=== PATIENT | female | born 1940 | race Caucasian/White ===

== ENCOUNTER 2018-01-09 13:26 | Day surgery (SDC) | payer OTHER, BC ==
--- NOTE | 2018-01-09 14:51 | HP ---
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 Followed by Oncologist . She has an appointment with oncologist on Saturday. She has had 3 blood transfusions prior to today's admission. Pt comes in today for 2 units of prbcs transfusion. Her hg outpt was around 8 per PCP. Pt appears well, reports fatigue which is chronic since chemo. Otherwise, no other complaints. Denies chest pain, sob, n/v/d, rash, unilateral weakness, or any acute bleeding. History Source: Patient Limitations to Obtaining History: No Limitations - Past Medical History Allergies/Adverse Reactions: Allergies Allergy/AdvReac Type Severity Reaction Status Date / Time No Known Drug Allergies Allergy Verified 07/08/15 13:56 Cardiovascular: Yes: CAD, HTN, Hyperlipdemia Gastrointestinal: Yes: Constipation, GERD, Irritable Bowel Disease Reproductive: Yes: Other (Uterine CA mets to lungs) Heme/Onc: Yes: Anemia, Current Chemotherapy Musculoskeletal: Yes: Osteoarthritis - Current Medications Current Medications: Home Medications Medication Instructions Recorded Amlodipine Besylate [Norvasc -] 5 mg PO DAILY 07/07/15 Aspirin Coated [Ecotrin -] 81 mg PO DAILY 07/07/15 Carvedilol 25 mg PO BID 07/07/15 Cholecalciferol (Vitamin D3) 1,000 unit PO DAILY 07/07/15 [Vitamin D3] Clonazepam [Klonopin] 0.5 mg PO PRN PRN 07/07/15 Ezetimibe [Zetia] 10 mg PO HS 07/07/15 FA/Vit C/E/Zinc/Copper/Lut/Stephy 1 each PO DAILY 07/07/15 [Ocuvel Capsule] Nitroglycerin [Nitrostat] 0.4 mg SL PRN PRN 07/07/15 Rosuvastatin Calcium [Crestor] 20 mg PO HS 07/07/15 Sertraline HCl [Zoloft -] 100 mg PO DAILY 07/07/15 Ubidecarenone [Co Q-10] 100 mg PO DAILY 07/07/15 Oxycodone HCl/Acetaminophen 1 - 2 tab PO Q4H #20 tablet 07/08/15 [Percocet 5-325 mg Tablet] Satellite Physical Exam - Physical Examination General Appearance: Well Nourished, Well Developed, Alert & Oriented x3, No Distress, Calm ENT: Clear Lung: Clear to auscultation Heart: Regular rate & rhythm Abdomen: Soft, No tenderness, Normal bowel sounds Extremities: No edema Neurological: Intact, Alert, Oriented Satellite Impression/Plan - Impression/Plan Impression: Chemotherapy Induced Anemia Operative Procedure: Plan: 2units prbcs ordered. vital signs per protocol. post transfusion cbc. d/c tomorrow am if no other issues
[2018-01-09] MEDS ORDERED: clonazePAM 0.5 MG TABLET PO PRN (15:15)
[2018-01-09] MEDS ORDERED: NITROGLYCERIN SUBLINGUAL 1/150 0.4 MG TAB SL PRN (15:42)
[2018-01-09] MEDS ORDERED: ACETAMINOPHEN 325 MG TABLET (FP) PO PRN (16:13)
[2018-01-09] MEDS ORDERED: oxyCODONE HCL 5 MG TABLET PO PRN (16:13)
[2018-01-09 20:14] LABS: BASO % 0.3 % (0-2.0); EOS % 0.7 % (0-4.5); HEMATOCRIT 23.8 % (32.4-45.2); LYMPH % 9.7 % (8-40); MCH 31.2 pg (25.7-33.7); MCHC 33.7 g/dl (32.0-36.0); MEAN CELL VOLUME 92.5 fl (80-96); MONO % 18.1 % (3.8-10.2); NEUT % 71.2 % (42.8-82.8); PLATELET COUNT 198 K/MM3 (134-434); RBC 2.58 M/mm3 (3.60-5.2); RDW 19.3 % (11.6-15.6); WHITE BLOOD COUNT 2.9 K/mm3 (4.0-10.0)
[2018-01-10 08:24] LABS: BASO % 1.3 % (0-2.0); EOS % 1.1 % (0-4.5); HEMATOCRIT 27.6 % (32.4-45.2); HEMOGLOBIN 9.4 GM/dL (10.7-15.3); MCHC 33.9 g/dl (32.0-36.0); MEAN CELL VOLUME 91.5 fl (80-96); MONO % 18.4 % (3.8-10.2); NEUT % 68.2 % (42.8-82.8); PLATELET COUNT 165 K/MM3 (134-434); RBC 3.02 M/mm3 (3.60-5.2); RDW 19.1 % (11.6-15.6); WHITE BLOOD COUNT 2.4 K/mm3 (4.0-10.0)
--- NOTE | 2018-01-10 09:42 | DS ---
Physical Examination Vital Signs: Vital Signs Temperature 98.0 F 01/10/18 06:00 Pulse Rate 70 01/10/18 06:00 Respiratory Rate 20 01/10/18 06:00 Blood Pressure 123/53 01/10/18 06:00 O2 Sat by Pulse Oximetry (%) Constitutional: Yes: Well Nourished, No Distress, Calm Cardiovascular: Yes: WNL, Regular Rate and Rhythm. No: Gallop, Murmur Respiratory: Yes: WNL, Regular, CTA Bilaterally. No: Accessory Muscle Use, SOB , Tachypnea, Wheezes Gastrointestinal: Yes: WNL, Normal Bowel Sounds, Soft. No: Distention, Tenderness Renal/: Yes: WNL Edema: No Integumentary: Yes: WNL Neurological: Yes: WNL, Alert, Oriented Psychiatric: Yes: WNL, Alert, Oriented Labs: CBC, BMP 01/10/18 07:15 Discharge Summary Reason For Visit: ANEMIA Hospital Course: is a pleasant 77 year old female who came in from home for blood transfusions per PCP for chemotherapy induced anemia. Hg 8 pre- transf. Pt received 2 units prbcs here without any issues. Otherwise, she remained stable overnight. vital signs stable. Pt asymptomatic. Pt is medically stable to be discharged home. Pt to f/u with oncologist on Saturday. Condition: Good - Instructions Diet, Activity, Other Instructions: resume prev activity, diet f/u with pcp oncologist on Saturday Disposition: HOME - Home Medications Comprehensive Discharge Medication List: Ambulatory Orders Amlodipine Besylate [Norvasc -] 5 mg PO DAILY 07/07/15 Aspirin Coated [Ecotrin -] 81 mg PO DAILY 07/07/15 Carvedilol 25 mg PO BID 07/07/15 Cholecalciferol (Vitamin D3) [Vitamin D3] 1,000 unit PO DAILY 07/07/15 Clonazepam [Klonopin] 0.5 mg PO PRN PRN 07/07/15 Ezetimibe [Zetia] 10 mg PO HS 07/07/15 FA/Vit C/E/Zinc/Copper/Lut/Stephy [Ocuvel Capsule] 1 each PO DAILY 07/07/15 Rosuvastatin Calcium [Crestor] 20 mg PO HS 07/07/15 Sertraline HCl [Zoloft -] 100 mg PO DAILY 07/07/15 Ubidecarenone [Co Q-10] 100 mg PO DAILY 07/07/15
[2018-01-10] MEDS ORDERED: SERTRALINE HCL 50 MG TABLET (FP) PO SCH ×2 (10:00→12:15)
[2018-01-10] MEDS ORDERED: amLODIPine BESYLATE 5 MG TABLET (FP) PO SCH (12:15)
[2018-01-10] MEDS ORDERED: CARVEDILOL 25 MG TABLET (FP) PO SCH (12:15)
[2018-01-10 12:26] VITALS: PULSE 69
[2018-01-10 12:27] VITALS: BP 122/68; TEMP 97.6
== END 2018-01-10 13:05 | disposition home or self-care (01) ==
LOC: JBLOOD 13:26 → J5S 13:27 → JBLOOD 01-10 13:05
PROVIDERS: ATTEND Specialist
PROC: 30233N1 Transfusion of Nonautologous Red Blood Cells into Peripheral Vein, Percutaneous Approach (ICD-10-PCS; principal; 2018-01-10)
DX: D64.9 Anemia, unspecified (principal); C55 Malignant neoplasm of uterus, part unspecified; C78.00 Secondary malignant neoplasm of unspecified lung
CPT/HCPCS: 36415; 36430; 36511; 85025; 86850; 86900; 86901; 86922; P9038; P9058